=== PATIENT | female | born 1995 | race Hispanic/Latino ===

== ENCOUNTER 2019-04-28 12:44 | Emergency (ER) | payer SELFPAY ==
[2019-04-28] MEDS ORDERED: HYDROcodone/Acetaminophen 10/325 mg Tablet ONE (13:08)
--- NOTE | 2019-04-28 13:17 | RAD ---
Exam:Right ankle 3 HISTORY: Trauma. Pain. Fall. COMPARISON: None FINDINGS: Preserved joint spaces. Intact ankle mortise. There is soft tissue swelling, predominantly along the medial aspect of the ankle. IMPRESSION: 1. Soft tissue swelling. 2. No fracture.
== END 2019-04-28 14:18 | disposition home or self-care (01) ==
LOC: ERS 12:44
DX: S93.401A Sprain of unspecified ligament of right ankle, initial encounter (principal); W20.8XXA Other cause of strike by thrown, projected or falling object, initial encounter